=== PATIENT | female | born 1960 ===

== ENCOUNTER 2021-07-16 08:00 | Outpatient (CLI) | payer OTHER | END 2021-07-16 23:59 | disposition home or self-care (01) | LOC: LAB.N 08:00 | PROVIDERS: ATTEND Family Medicine | DX: R05.9 Cough, unspecified (principal); Z20.822 Contact with and (suspected) exposure to COVID-19 ==

== ENCOUNTER 2021-07-16 17:25 | Outpatient (CLI) | payer OTHER ==
--- NOTE | 2021-07-17 08:16 | XRAY Report ---
PROCEDURE: Chest 2 View X-Ray INDICATIONS: COUGH TECHNIQUE: 2 view(s) of the chest. COMPARISON: None. FINDINGS: SUPPORT DEVICES: Thoracospinal hardware is noted. LUNG/PLEURA: No focal consolidation or pulmonary edema. No pleural effusion or space-occupying pneumo thorax. MEDIASTINUM: The cardiomediastinal silhouette is within normal limits. BONES/SOFT TISSUES: No acute abnormality. IMPRESSION: 1.No acute cardiopulmonary abnormality. Reviewed by: Ras Hess MD on 07/17/2021 8:14 AM PDT Approved by: Ras Hess MD on 07/17/2021 8:14 AM PDT Station ID: [id number]
== END 2021-07-16 23:59 ==
LOC: DI.N 17:25
PROVIDERS: ATTEND Family Medicine
DX: R05.9 Cough, unspecified (principal)

== ENCOUNTER 2021-07-26 15:15 | Outpatient (CLI) | payer OTHER ==
--- NOTE | 2021-08-01 00:24 | XRAY Report ---
PROCEDURE: Chest 2 View X-Ray INDICATIONS: ASTHMA TECHNIQUE: 2 view(s) of the chest. Exam became available for evaluation on 07/31/2021. COMPARISON: Chest x-ray 08/16/2021 FINDINGS: Surgical changes and devices: Stimulator device as well as partially visualized thoracic fusion are p resent. Lungs and pleura: No pleural effusions or pneumothorax. Lungs are clear. Mediastinum: Mediastinal contours are normal. Heart size is normal. Bones and chest wall: No suspicious bony abnormalities. Soft tissues appear unremarkable. IMPRESSION: No acute pulmonary process. Reviewed by: Melania Brice MD on 08/01/2021 12:23 AM PDT Approved by: Melania Brice MD on 08/01/2021 12:23 AM PDT Station ID: [id number]
== END 2021-07-26 23:59 ==
LOC: DI.N 15:15
PROVIDERS: ATTEND Family Medicine
DX: J45.909 Unspecified asthma, uncomplicated (principal); R05.9 Cough, unspecified